=== PATIENT | female | born 1985 | race African-American/Black ===

== ENCOUNTER 2016-10-19 13:56 | Emergency (ER) | payer OTHER ==
[~2016-10-19] VITALS: Ht 160 cm; Wt 122.5 kg
[~2016-10-19 13:56] MED LIST: HYDROCODONE/ACE1 TA1 PO; MOTRIN 600 MG600 MG PO; ONDANSETRON HYDR4 MG PO; OXYCODONE5 MG PO; PERCOCET 325 MG1 TA2 PO
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
[2016-10-19] MEDS ORDERED: VENTOLIN HFA18 GM INH (15:25)
[2016-10-19] MEDS ORDERED: TAMIFLU75 M1 PO (15:25)
[2016-10-19] MEDS ORDERED: MEDROL4 M2 PO (15:25)
[2016-10-19] MEDS ORDERED: ZITHROMAX500 M2 PO (15:25)
[2016-10-19] MEDS ORDERED: GUAIFENESIN-COD10 ML PO ×2 (15:25→15:26)
[2016-10-19] MEDS ORDERED: NASONEX17 GM NASB (15:25)
[2016-10-19] MEDS ORDERED: TESSALON PERLE100 M1 PO (15:25)
[2016-10-19 15:40] VITALS: BP 127/65
== END 2016-10-19 16:14 ==
LOC: ERH 13:56
DX: J11.1 Influenza due to unidentified influenza virus with other respiratory manifestations (principal); Z72.0 Tobacco use
CPT/HCPCS: 87804; 87804-59

== ENCOUNTER 2016-11-24 14:53 | Emergency (ER) | payer OTHER ==
[~2016-11-24] VITALS: Ht 160 cm; Wt 122.5 kg
[~2016-11-24 14:53] MED LIST changes: +GUAIFENESIN-COD10 ML PO; +MEDROL4 M2 PO; +NASONEX17 GM NASB; +TAMIFLU75 M1 PO; +TESSALON PERLE100 M1 PO; +VENTOLIN HFA18 GM INH; +ZITHROMAX500 M2 PO
[2016-11-24 14:59] VITALS: BP 157/98
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
[2016-11-24] MEDS ORDERED: MOBIC15 M1 PO (15:48)
[2016-11-24] MEDS ORDERED: TRAMADOL HCL50 M1 PO (15:48)
== END 2016-11-24 16:30 ==
LOC: ERH 14:53
DX: S90.821A Blister (nonthermal), right foot, initial encounter (principal); X58.XXXA Exposure to other specified factors, initial encounter; Y93.9 Activity, unspecified; Y92.9 Unspecified place or not applicable

== ENCOUNTER 2016-12-13 06:30 | Emergency (ER) | payer OTHER ==
[~2016-12-13] VITALS: Ht 162.6 cm; Wt 124.7 kg
[~2016-12-13 06:30] MED LIST changes: +MOBIC15 M1 PO; +TRAMADOL HCL50 M1 PO
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
[2016-12-13 06:38] VITALS: BP 145/78
[2016-12-13] MEDS ORDERED: ATIVAN0.5 M1 PO (06:39)
== END 2016-12-13 07:12 ==
LOC: ERH 06:30
DX: F41.9 Anxiety disorder, unspecified (principal); F19.10 Other psychoactive substance abuse, uncomplicated

== ENCOUNTER 2017-01-28 03:39 | Emergency (ER) | payer OTHER ==
[~2017-01-28] VITALS: Ht 160 cm; Wt 122.5 kg
[~2017-01-28 03:39] MED LIST changes: +ATIVAN0.5 M1 PO
[2017-01-28 03:47] VITALS: BP 128/80
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
--- NOTE | 2017-01-28 05:49 | RADIOLOGY REPORT ---
EXAMINATION: XR TIBIA AND FIBULA, RIGHT XR KNEE, RIGHT CLINICAL INFORMATION: Fall onto cement. COMPARISON: 08/09/2015 TECHNIQUE: AP and lateral views of the right tibia and fibula were obtained. 2 views of the right knee. FINDINGS: Right knee: No evidence of acute fracture or subluxation. Alignment is anatomic. No joint effusion. Diffuse soft tissue prominence. Right tibia/fibula: No acute fracture or cortical disruption. Anatomic alignment at the ankle. Small plantar heel spur. IMPRESSION: No acute fracture or malalignment involving the right knee or tibia/fibula.
[2017-01-28] MEDS ORDERED: IBUPROFEN800 M1 PO (05:55)
== END 2017-01-28 06:17 ==
LOC: ERH 03:39
DX: S80.01XA Contusion of right knee, initial encounter (principal); S80.211A Abrasion, right knee, initial encounter; W19.XXXA Unspecified fall, initial encounter
CPT/HCPCS: 73562-RT; 73590-RT; 81025; 96372; J1885

== ENCOUNTER 2017-02-14 18:52 | Emergency (ER) | payer OTHER ==
[~2017-02-14] VITALS: Ht 160 cm; Wt 117.9 kg
[~2017-02-14 18:52] MED LIST changes: +IBUPROFEN800 M1 PO
[2017-02-14 19:02] VITALS: BP 121/82
[2017-02-14] MEDS ORDERED: OCUFLOX5 ML OT (19:44)
[2017-02-14] MEDS ORDERED: NAPROSYN500 M1 PO (19:44)
[2017-02-14] MEDS ORDERED: ROBAXIN500 M1 PO (19:44)
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
== END 2017-02-14 19:52 ==
LOC: ERH 18:52
DX: S76.011A Strain of muscle, fascia and tendon of right hip, initial encounter (principal); H60.91 Unspecified otitis externa, right ear; X58.XXXA Exposure to other specified factors, initial encounter; Y92.9 Unspecified place or not applicable; Y93.9 Activity, unspecified

== ENCOUNTER 2018-01-29 10:42 | Emergency (ER) | payer OTHER ==
[~2018-01-29 10:42] MED LIST changes: +BACTRIM DS TAB1 EACH PO; +KEFLEX500 M1 PO; +NAPROSYN500 M1 PO; +OCUFLOX5 ML OT; +ROBAXIN500 M1 PO
[2018-01-29] MEDS ORDERED: AMOXICILLIN500 M2 PO (11:47)
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
[2018-01-29 12:42] LABS: ABSOLUTE BASOPHIL COUNT 0 /CUMM (0.0-0.2); ABSOLUTE EOSINOPHIL COUNT 0.1 /CUMM (0.0-0.7); ABSOLUTE GRANULOCYTE CT 5.4 /CUMM (1.4-6.5); ABSOLUTE LYMPH COUNT 1.8 /CUMM (1.2-3.4); ABSOLUTE MONOCYTE COUNT 0.4 /CUMM (0.10-0.60); BASOPHIL % 0.6 % (0.0-2.0); EOSINOPHIL % 1.7 % (0-5); GRANULOCYTE % 68.6 % (42.2-75.2); MEAN CORPUSCULAR HGB 27.4 PG (27.0-31.0); MEAN CORPUSCULAR HGB CONC 33.6 G/DL (33.0-37.0); MEAN CORPUSCULAR VOLUME 81.4 FL (81.0-99.0); MEAN PLATELET VOLUME 10.4 FL (7.4-10.4); PLATELET COUNT 188 /CUMM (130-400); RBC DISTRIBUTION WIDTH 14.1 % (11.5-14.5); RED BLOOD CELL CT 4.43 /CUMM (4.20-5.40); WHITE BLOOD CELL COUNT 7.9 /CUMM (4.8-10.8)
--- NOTE | 2018-01-29 14:28 | RADIOLOGY REPORT ---
EXAMINATION: XR CHEST 2 VIEWS CLINICAL INFORMATION: Chest pain. COMPARISON: Prior chest radiograph dated 05/02/2006. TECHNIQUE: Frontal and lateral views of the chest were obtained. FINDINGS: The heart, great vessels, pulmonary vasculature and mediastinum are normal. The lungs show no focal infiltrate, effusion or pneumothorax. There is no acute osseous abnormality. IMPRESSION: No active cardiopulmonary disease.
[2018-01-29] MEDS ORDERED: DICYCLOMINE HCL10 M1 PO (16:34)
[2018-01-29] MEDS ORDERED: ZOFRAN ODT4 M1 SL (16:34)
[2018-01-29] MEDS ORDERED: PROMETHAZINE HC25 M3 PO (16:34)
[2018-01-29 17:21] VITALS: BP 136/80
== END 2018-01-29 17:27 ==
LOC: ERH 10:42
PROVIDERS: Physician Assistant Medical
DX: K52.9 Noninfective gastroenteritis and colitis, unspecified (principal); R11.2 Nausea with vomiting, unspecified; R19.7 Diarrhea, unspecified; R07.9 Chest pain, unspecified
CPT/HCPCS: 71046; 81001; 87804; 87804-59; 93005; 93010; 96374; 96375; J1885; J2405; J2550

== ENCOUNTER 2018-02-20 00:50 | Emergency (ER) | payer OTHER ==
[~2018-02-20 00:50] MED LIST changes: +AMOXICILLIN500 M2 PO; +DICYCLOMINE HCL10 M1 PO; +PROMETHAZINE HC25 M3 PO; +ZOFRAN ODT4 M1 SL
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
[2018-02-20 01:00] VITALS: BP 122/68
== END 2018-02-20 02:08 ==
LOC: ERH 00:50
DX: R42 Dizziness and giddiness (principal); Z72.89 Other problems related to lifestyle; R53.1 Weakness
CPT/HCPCS: 80307; 81003; 81025; 93005; 93010; 96361; 96374; 96375; G0480; J1885; J2405

== ENCOUNTER 2018-03-29 17:18 | Emergency (ER) | payer OTHER ==
[~2018-03-29] VITALS: Ht 160 cm; Wt 142.9 kg
[~2018-03-29 17:18] MED LIST changes: +PROAIR HFA8.5 GM INH; +ZITHROMAX250 M2 PO
[2018-03-29] MEDS ORDERED: NYSTATIN100000 UNI PO (19:47)
[2018-03-29] MEDS ORDERED: LIDOCAINE HCL V15 ML PO (19:47)
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
[2018-03-29 20:11] VITALS: BP 130/85
== END 2018-03-29 20:12 ==
LOC: ERH 17:18
DX: K14.8 Other diseases of tongue (principal)

== ENCOUNTER 2018-04-23 23:58 | Emergency (ER) | payer OTHER ==
[~2018-04-23] VITALS: Ht 160 cm; Wt 141.5 kg
[~2018-04-23 23:58] MED LIST changes: +LIDOCAINE HCL V15 ML PO; +NYSTATIN100000 UNI PO
[2018-04-24 00:24] VITALS: BP 111/67
== END 2018-04-24 02:19 | disposition admitted as inpatient to this hospital (09) ==
LOC: ERH 23:58
DX: M25.571 Pain in right ankle and joints of right foot (principal); W19.XXXA Unspecified fall, initial encounter; Z33.1 Pregnant state, incidental

== ENCOUNTER 2018-06-06 21:59 | Emergency (ER) | payer OTHER ==
[~2018-06-06] VITALS: Ht 160 cm; Wt 136.1 kg
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
--- NOTE | 2018-06-07 00:04 | RADIOLOGY REPORT ---
EXAMINATION: XR CHEST CLINICAL INFORMATION: Chest pain. Cough. COMPARISON: Chest x-ray February 23, 2018 TECHNIQUE: 2 views of the chest were obtained. FINDINGS: No significant abnormality is noted involving the heart, lungs, mediastinum, bony thorax or soft tissues. IMPRESSION: Unremarkable examination.
[2018-06-07 00:11] LABS: ABSOLUTE BASOPHIL COUNT 0 /CUMM (0.0-0.2); ABSOLUTE EOSINOPHIL COUNT 0.2 /CUMM (0.0-0.7); ABSOLUTE GRANULOCYTE CT 8.9 /CUMM (1.4-6.5); ABSOLUTE LYMPH COUNT 2.4 /CUMM (1.2-3.4); ABSOLUTE MONOCYTE COUNT 0.5 /CUMM (0.10-0.60); BASOPHIL % 0.4 % (0.0-2.0); EOSINOPHIL % 1.4 % (0-5); GRANULOCYTE % 74.2 % (42.2-75.2); HEMATOCRIT 39.2 % (37-47); MEAN CORPUSCULAR HGB 28.1 PG (27.0-31.0); MEAN CORPUSCULAR HGB CONC 33.5 G/DL (33.0-37.0); MEAN PLATELET VOLUME 10.5 FL (7.4-10.4); PLATELET COUNT 165 /CUMM (130-400); RBC DISTRIBUTION WIDTH 14.1 % (11.5-14.5); RED BLOOD CELL CT 4.67 /CUMM (4.20-5.40)
[2018-06-07] MEDS ORDERED: ZOFRAN ODT4 M1 SL (01:09)
[2018-06-07] MEDS ORDERED: MOBIC15 M1 PO (01:09)
[2018-06-07 02:22] VITALS: BP 144/80
== END 2018-06-07 02:23 ==
LOC: ERH 21:59
PROVIDERS: Physician Assistant
DX: R07.89 Other chest pain (principal); R11.2 Nausea with vomiting, unspecified; J45.909 Unspecified asthma, uncomplicated; F17.210 Nicotine dependence, cigarettes, uncomplicated
CPT/HCPCS: 71046; 81025; 93005; 93010; 96374; 96375; J0131; J1885; J2405